=== PATIENT | female | born 1930 | race Caucasian/White ===

== ENCOUNTER → 2016-07-26 | Outpatient (CLI) | payer OTHER ==
[~2016-07-26] MED LIST: ASPIRIN PO; CERTAGEN PO; EVISTA60 MG PO; FISH OIL 1,0001 CAP PO; FLOMAX0.4 M1 PO; FOSAMAX PO; LIPITOR PO; MEDROL DOSEPAK4 MG PO; METOPROLOL SUCC25 MG PO; NORCO1 TAB 10/3 PO; PERCOCET 51 UDTAB 5/ PO; PRESERVISION1 EA PO; ST JOSEPH ASPIR81 M1 PO; TOPROL XL PO; VITAMIN B 3; VITAMIN B12 SHOT; ZOFRAN PO; ZOLOFT PO; ZOLOFT50 MG PO
--- NOTE | ~2016-07-26 | CT98 ---
[facility] A Service of [facility] & [facility] RADIOLOGY TEXT RESULTS PATIENT: MONET LOOMIS WH LOCATION: [facility] : 28 UNIT #: [id number] AGE: [address]: Max Maloney MD SEX: F ORDER DR: [id number] [place] [id number] O MR#: [id number] Acc #: [id number] NAME: MONET LOOMIS : 1930 SEX: F STUDY DATE/TIME: 07/26/2016 13:17 UNIT: [facility] ROOM: STUDY DESCRIPTION: CT Lumbar Spine Wo Cont Attending Physician: Max Maloney M.D. Referring Physician: Max Maloney M.D. Ordering Physician: Max Maloney M.D. Primary Care Physician: Max Maloney M.D. MEDICAL IMAGING REPORT This report is preliminary unless electronic signature is present. EXAM Lumbar spine CT no contrast 07/26/2016 PROCEDURE Axial unenhanced lumbar spine CT with multiplanar reformats. This CT examination was performed with one or more of the following radiation dose reduction techniques: automatic exposure control, adjustment of mA and/or kV according to patient size, and iterative reconstruction. COMPARISON CT abdomen and pelvis dated 09/24/2015 and MRI lumbar spine dated 08/08/2011. CLINICAL HISTORY 2 weeks status post fall with lower back and left hip pain since that time. FINDINGS Redemonstrated chronic compression fracture at L2 with near vertebral plana and retropulsion of bone into the central spinal canal unchanged since the CT of 09/24/2015 as is a partially seen T10 compression fracture. However there is a new acute or subacute compression fracture at L3. There is 35% to 40% height loss since the time of the prior exam, though there is no central canal compromise though there is slight posterior cortical irregularity. Very slight degenerative L4-5 grade 1 anterolisthesis is redemonstrated. IMPRESSION While there are chronic compression fractures at L2 and T10, there is a subacute L3 compression fracture with about 40% height loss as compared to the CT abdomen and pelvis of September 2015. There is very slight posterior STS. [facility] A Service of [facility] & [facility] RADIOLOGY TEXT RESULTS PATIENT: MONET LOOMIS [facility] LOCATION: [facility] : 28 UNIT #: [id number] AGE: [address]: Max Maloney MD SEX: F ORDER DR: cortical disruption but no significant effective canal stenosis. Findings all appear to be benign, without evidence of pathologic fracture at any level other than due to osteopenia. No other new or acute fracture is seen and there has been no change in the fracture at L2 or at T10 though that fracture is only partially seen here. Dictated by... Álvaro Gillespie M.D. THIS IS AN ELECTRONICALLY VERIFIED REPORT Álvaro Gillespie M.D. at 07/27/2016 1:47 PM TEV/mjs TD: 07/27/2016 07:21 JOB #: [id number] MEDICAL IMAGING REPORT Page 1 of 1
--- NOTE | ~2016-07-26 | CR150 ---
[facility] A Service of [facility] & [facility] RADIOLOGY TEXT RESULTS PATIENT: MONET LOOMIS [facility] LOCATION: [facility] : 29 UNIT #: [id number] AGE: [address]: Max Maloney MD SEX: F ORDER DR: [id number] [place] [id number] O MR#: [id number] Acc #: [id number] NAME: MONET LOOMIS : 1930 SEX: F STUDY DATE/TIME: 07/26/2016 13:06 UNIT: [facility] ROOM: STUDY DESCRIPTION: CR Hip Min 2 Views Lt Attending Physician: Max Maloney M.D. Referring Physician: Max Maloney M.D. Ordering Physician: Max Maloney M.D. Primary Care Physician: Max Maloney M.D. MEDICAL IMAGING REPORT This report is preliminary unless electronic signature is present. EXAM Left hip and pelvis, 07/26/2016. INDICATIONS Left hip pain since fall 2 weeks ago. FINDINGS AP pelvis was obtained, in addition to a frog-leg left hip. No fracture or malalignment is seen. The femoral heads are normal without evidence of osteonecrosis. There is no sacroiliac joint diastasis. There is relatively mild osteoarthritis in both hips. IMPRESSION Mild hip osteoarthritis; otherwise negative. Dictated by... Ayush Holder Jr., M.D. THIS IS AN ELECTRONICALLY VERIFIED REPORT Ayush Holder Jr., M.D. at 07/27/2016 2:06 PM MARGAUX/gail TD: 07/26/2016 19:27 JOB #: [id number] MEDICAL IMAGING REPORT Page 1 of 1
== END | disposition home or self-care (01) ==
LOC: SCT 12:51
DX: S32.038D Other fracture of third lumbar vertebra, subsequent encounter for fracture with routine healing (principal); M25.552 Pain in left hip; S32.029D Unspecified fracture of second lumbar vertebra, subsequent encounter for fracture with routine healing; S22.079D Unspecified fracture of T9-T10 vertebra, subsequent encounter for fracture with routine healing; M16.12 Unilateral primary osteoarthritis, left hip
CPT/HCPCS: 72131; 73502